=== PATIENT | female | born 1985 | race Caucasian/White ===

== ENCOUNTER → 2021-01-12 | Outpatient (CLI) | payer OTHER ==
[2021-01-12 09:10] LABS: MEAN CORP HGB 28.3 pg (26-34)
[2021-01-12 09:32] LABS: CALCIUM 9.2 mg/dL (8.4-10.5); CARBON DIOXIDE 26.5 mmol/L (20.0-32)
[2021-01-13 12:15] LABS: ESTRADIOL 24.3 pg/mL (.); FOLLICLE STIMULATING HORMONE 1.5 mIU/mL (.)
== END | disposition home or self-care (01) ==
LOC: LAB 08:48
PROVIDERS: ATTEND Nurse Practitioner Family
DX: U07.1 COVID-19 (principal); R23.2 Flushing
CPT/HCPCS: 36415; 80053; 82670; 83001; 84146; 84403; 84439; 84443; 85027; 86769

== ENCOUNTER → 2022-03-11 | Outpatient (CLI) | payer OTHER | END | disposition home or self-care (01) | LOC: LAB 09:26 | PROVIDERS: ATTEND Nurse Practitioner Women's Health | DX: Z30.09 Encounter for other general counseling and advice on contraception (principal) | CPT/HCPCS: 87491; 87591 ==